=== PATIENT | female | born 1995 | race African-American/Black ===

== ENCOUNTER 2017-06-18 09:48 | Emergency (ER) | payer OTHER ==
[~2017-06-18] VITALS: Ht 170.2 cm; Wt 118.0 kg
[2017-06-18 09:56] VITALS: Ht 170.2 cm; Wt 118.0 kg
[2017-06-18] MEDS ORDERED: ESCI10TA17 PO (10:37)
[2017-06-18] MEDS ORDERED: ONDANSETRON 4MG OD TAB PO ONE (11:15)
--- NOTE | 2017-06-18 11:31 | DIAGNOSTIC IMAGING REPORT ---
CT HEAD WITHOUT CONTRAST (CT) CLINICAL HISTORY: Head trauma. Vomiting. Concussive symptoms. Headache. COMPARISON STUDY: No previous studies for comparison. TECHNIQUE: Axial CT of the brain is performed from the vertex to the skull base. IV contrast was not administered for this examination. A dose lowering technique was utilized adhering to the principles of ALARA. CT DOSE: 638.56 mGycm FINDINGS: No intra or extra-axial mass lesions are visualized. There is no CT evidence of acute cortical infarction. There is no evidence of midline shift. There is no acute hemorrhage. No calvarial fractures are visualized. There is no evidence of pathologic ventricular dilatation. There is no evidence of acute sinusitis IMPRESSION: Normal noncontrast head CT. Electronically signed by: Dann Ortez M.D. 06/18/2017 11:29 AM Dictated Date/Time: 06/18/2017 11:28 AM
--- NOTE | 2017-06-18 11:57 | EMERGENCY ROOM VISIT NOTE ---
History First contact with patient: 10:01 Chief Complaint: HEAD INJURY (MINOR) Stated Complaint: CONCUSSION, INJURED SAMARIA., HURT THUMB History of Present Illness The patient is a 21 year old female who presents to the Emergency Room with complaints of a closed head injury. The patient reports that she was wearing heels and slipped on the floor last night while walking into a club. She states that she struck her head. She also reports an injury to her left thumb. She states that she vomited 2 times last night. She is persistently nauseous and reports a headache. There was no loss of consciousness at the time of the injury. She does report a decreased memory. She denies any numbness, weakness , blurred vision, slurred speech or neck pain. She states that she was not drinking any alcohol last night. Review of Systems A complete 10 point review of systems was reviewed with the patient with pertinent positives and negatives as per history of present illness. All else were negative. Social History Smoking Status: Never Smoker Current/Historical Medications Scheduled Escitalopram (Lexapro), 20 MG PO DAILY Physical Exam Vital Signs Date Time Temp Pulse Resp B/P (MAP) Pulse Ox O2 Delivery O2 Flow Rate FiO2 06/18/17 13:16 37.2 91 20 146/75 98 06/18/17 11:43 91 20 146/75 98 Room Air 06/18/17 09:56 37.2 80 20 162/82 100 Room Air Physical Exam VITALS: Vitals are noted on the nurse's note and reviewed by myself. Vital signs stable. GENERAL: This is a 21-year-old female, in no acute distress, nondiaphoretic, well-developed well-nourished. SKIN: The skin was without rashes, erythema, edema, or bruising. HEAD: Normocephalic atraumatic. EARS: External auditory canals clear, tympanic membranes pearly [place] without erythema or effusion bilaterally. No hemotympanum. EYES: Pupils equal round and reactive to light and accommodation. Extraocular movements intact. MOUTH: Mucous membranes moist. Tonsils are not enlarged. Pharynx without erythema or exudate. NECK: Supple without nuchal rigidity. Cervical spine is nontender. HEART: Regular rate and rhythm without murmurs gallops or rubs. LUNGS: Clear to auscultation bilaterally without wheezes, rales or rhonchi. MUSCULOSKELETAL: Full range of motion throughout. Strength 5/5 throughout. NEURO: Patient was alert and oriented to person place and time. Normal sensation to light and sharp touch. Deep tendon reflexes 2+ throughout. No focal neurological deficits. Medical Decision & Procedures ER Provider Diagnostic Interpretation: CT HEAD WITHOUT CONTRAST (CT) FINDINGS: No intra or extra-axial mass lesions are visualized. There is no CT evidence of acute cortical infarction. There is no evidence of midline shift. There is no acute hemorrhage. No calvarial fractures are visualized. There is no evidence of pathologic ventricular dilatation. There is no evidence of acute sinusitis IMPRESSION: Normal noncontrast head CT. LEFT THUMB 3 VIEWS FINDINGS: 3 views of left thumb are obtained. No prior studies are available for comparison at the time of dictation. The skeletal structures are well mineralized. There is a tiny avulsion fracture seen at the ulnar base of the first proximal phalanx. No additional fracture is seen. The first metacarpophalangeal and interphalangeal joints are well-maintained. Mild soft tissue swelling is noted. IMPRESSION: There is a tiny avulsion fracture at the ulnar base of the first proximal phalanx as above. Medications Administered Medications (Trade) Dose Ordered Sig/Patricio Route Start Time Stop Time Status Last Admin Dose Admin Ondansetron HCl (Zofran Odt) 4 mg ONE ONCE PO 06/18/17 11:15 06/18/17 11:16 DC 06/18/17 11:41 4 MG Medical Decision Differential diagnosis includes concussion, intracranial hemorrhage, skull fracture, among others. The patient is a 21-year-old female who presents today complaining of a closed head injury. CT scan of the head was obtained and was read by radiology with no acute findings. Patient was treated with Zofran for nausea. X-ray of the affected finger was obtained and showed a small avulsion fracture. Patient was placed in a metal finger splint. Customary head injury precautions were reviewed with patient. She verbalized understanding of my assessment and treatment plan was discharged home in good condition. Head Trauma GCS Score: 15 Medication Reconcilliation Current Medication List: was personally reviewed by me Blood Pressure Screening Patient's blood pressure: Elevated blood pressure Blood pressure disposition: Referred to PCP Impression Primary Impression: Closed head injury Departure Information Dispostion Home / Self-Care Condition GOOD Referrals No Doctor, Assigned (PCP) Patient Instructions My [facility] Additional Instructions You have been treated in the Emergency Department for a Closed Head Injury. CT Scan of your head/brain demonstrated no acute bleeding or other abnormalities. This does not completely rule out the risk for future damage to the brain. For pain control, you can use the following dxua-lji-fatulwl medicines (if >12 yo): - Regular strength (325mg/tab) Tylenol (acetaminophen) 2 tabs every 4-6 hours as needed. Do not exceed 12 tablets in a 24 hour period. Avoid taking more than 4 grams (4000 mg) of Tylenol per day. This includes any other sources of acetaminophen you may take on a regular basis. - Regular strength (200 mg/tab) Advil (ibuprofen) 1-2 tabs every 4-6 hours as needed. Do not exceed a dose of 3200 mg per day. You should relax in a quiet, dark place for the rest of the day. Avoid any possible triggers including: cigarette smoke, caffeine, nicotine, chocolate, wine, beer, loud noises or music, or bright lights. You should schedule a follow-up appointment in 2-3 days with your Primary Care Provider or established Neurologist for further evaluation and treatment of your Headache. Follow-up with [facility] this week for a recheck. Return to the Emergency Department if your current symptoms worsen despite treatment course outlined above, or if you develop any of the following symptoms : intractable pain despite aforementioned treatment course, visual disturbances , loss of vision, unilateral weakness or facial drooping, slurring of speech, loss of coordination, or loss of consciousness. Problem Qualifiers Primary Impression: Closed head injury Encounter type: initial encounter Qualified Codes: S09.90XA - Unspecified injury of head, initial encounter
--- NOTE | 2017-06-18 13:00 | DIAGNOSTIC IMAGING REPORT ---
LEFT THUMB 3 VIEWS CLINICAL HISTORY: Fall with left thumb pain. FINDINGS: 3 views of left thumb are obtained. No prior studies are available for comparison at the time of dictation. The skeletal structures are well mineralized. There is a tiny avulsion fracture seen at the ulnar base of the first proximal phalanx. No additional fracture is seen. The first metacarpophalangeal and interphalangeal joints are well-maintained. Mild soft tissue swelling is noted. IMPRESSION: There is a tiny avulsion fracture at the ulnar base of the first proximal phalanx as above. Electronically signed by: Rei Galarza M.D. 06/18/2017 12:59 PM Dictated Date/Time: 06/18/2017 12:58 PM
[2017-06-18 13:16] VITALS: BP 146/75; PULSE 91; TEMP 37.2; O2SAT 98
== END 2017-06-18 13:17 | disposition home or self-care (01) ==
LOC: C.EDB 09:52
DX: S09.90XA Unspecified injury of head, initial encounter (principal); S61.002A Unspecified open wound of left thumb without damage to nail, initial encounter; W01.0XXA Fall on same level from slipping, tripping and stumbling without subsequent striking against object, initial encounter; R11.0 Nausea